=== PATIENT | female | born 2000 | race Caucasian/White ===

== ENCOUNTER 2024-06-01 18:10 | Emergency (ER) | payer OTHER ==
[~2024-06-01] VITALS: Ht 165.1 cm; Wt 86.4 kg
[2024-06-01] MEDS: DiphenhydrAMINE HCL 50 MG/ML VIAL IVP ONE (20:17)
[2024-06-01] MEDS: MethylPREDNISolone SOD SUCC 125 MG/2 ML VIAL IVP ONE (20:17)
[2024-06-01] MEDS: FAMOTIDINE 20 MG/2 ML VIAL IVP ONE (20:17)
[2024-06-01] MEDS ORDERED: DIPH-1243 PO (21:44)
[2024-06-01] MEDS ORDERED: METH4TAB3 PO (21:44)
[2024-06-01] MEDS ORDERED: FAMO20 PO (21:44)
[2024-06-01 22:18] VITALS: BP 121/72; PULSE 86; RESP 18; TEMP 97.9; O2SAT 98
== END 2024-06-01 22:40 | disposition home or self-care (01) ==
LOC: EMS 18:13
DX: R21 Rash and other nonspecific skin eruption (principal); T50.995A Adverse effect of other drugs, medicaments and biological substances, initial encounter; Z88.0 Allergy status to penicillin; F12.90 Cannabis use, unspecified, uncomplicated; Y92.89 Other specified places as the place of occurrence of the external cause
CPT/HCPCS: 99284; 96374; 96375; J1200; J3490; J2919